=== PATIENT | male | born 1970 | race Hispanic/Latino ===

== ENCOUNTER 2017-12-29 19:40 | Emergency (ER) | payer OTHER ==
[2017-12-29 19:48] VITALS: TEMP 98.1; O2SAT 98
--- NOTE | 2017-12-29 22:00 | ED PDOC ---
HPI: Psych/Substance Abuse Time Seen by Provider: 12/29/17 20:25 Chief Complaint (Nursing): Chest Pain Chief Complaint (Provider): palpitations History Per: Patient History/Exam Limitations: no limitations Onset/Duration Of Symptoms: Hrs (x2) Current Symptoms Are (Timing): Gone Now Additional Complaint(s): 47 year old, [place] male with medical history of anxiety and depression, presents to the emergency department with a complaint of palpitations and lightheadedness while walking his dog 2 hours prior to arrival. Patient reported resolution of palpitations upon arrival but stated psychiatrist had doubled his doasge of Wellbutrin on 12/23/17. He also noted that he takes Adderall daily and currently tapering off of Lexapro. Denied any chest pain, nausea, vomiting or sweats. PMD: Drew Mccarthy MD Past Medical History Reviewed: Historical Data, Nursing Documentation, Vital Signs Vital Signs: Last Vital Signs Temp 98.1 F 12/29/17 19:45 Pulse 79 12/29/17 20:38 Resp 16 12/29/17 19:45 BP 146/93 H 12/29/17 20:38 Pulse Ox 98 12/29/17 19:45 - Medical History PMH: Anxiety, Depression - Surgical History Surgical History: No Surg Hx - Family History Family History: States: Unknown Family Hx - Social History Current smoker - smoking cessation education provided: No Alcohol: Social Drugs: Denies - Allergies Allergies/Adverse Reactions: Allergies Allergy/AdvReac Type Severity Reaction Status Date / Time No Known Allergies Allergy Verified 12/29/17 19:45 Review of Systems ROS Statement: Except As Marked, All Systems Reviewed And Found Negative Constitutional: Negative for: Sweats Cardiovascular: Positive for: Palpitations, Light Headedness. Negative for: Chest Pain Gastrointestinal: Negative for: Nausea, Vomiting Physical Exam - Reviewed Nursing Documentation Reviewed: Yes Vital Signs Reviewed: Yes - Physical Exam Appears: Positive for: Non-toxic, No Acute Distress Head Exam: Positive for: ATRAUMATIC, NORMAL INSPECTION, NORMOCEPHALIC Skin: Positive for: Normal Color Eye Exam: Positive for: Normal appearance ENT: Positive for: Normal ENT Inspection Neck: Positive for: Normal Cardiovascular/Chest: Positive for: Regular Rate, Rhythm, Chest Non Tender. Negative for: Murmur Respiratory: Positive for: Normal Breath Sounds. Negative for: Decreased Breath Sounds, Wheezing, Respiratory Distress Gastrointestinal/Abdominal: Positive for: Normal Exam, Soft. Negative for: Tenderness Extremity: Positive for: Normal ROM (upper/lower) Neurologic/Psych: Positive for: Alert, Oriented - Laboratory Results Result Diagrams: 12/29/17 22:50 12/29/17 22:50 - ECG O2 Sat by Pulse Oximetry: 98 (RA) Pulse Ox Interpretation: Normal Medical Decision Making Medical Decision Making: Initial Impression: Palpitation and lightheadedness in setting of psych med changes Initial Plan: * CMP * Drug screen, urine * TSH * Troponin I * CBC Labs revealed no significant clinical abnormalities. No arrhythmic activity was noted since arrival to ED. Patient reports feeling asymptomatic. Stable for discharge home. Diagnosis is palpitations. Patient is advised to follow up with psychiatrist since it may be related to increase in dosage of Wellbutrin. Return precautions were advised as well. Scribe Attestation: Documented by Anne-Marie Ocasio, acting as a scribe for Dimitri Singh MD. Provider Scribe Attestation: All medical record entries made by the Scribe were at my direction and personally dictated by me. I have reviewed the chart and agree that the record accurately reflects my personal performance of the history, physical exam, medical decision making, and the department course for this patient. I have also personally directed, reviewed, and agree with the discharge instructions and disposition. Disposition - Clinical Impression Clinical Impression: Palpitations - Patient ED Disposition Is Patient to be Admitted: No - Disposition Disposition: Routine/Home Disposition Time: 23:15 Condition: STABLE Instructions: Palpitations Forms: [employer] (Estonian)
[2017-12-29 22:56] LABS: BASO % 0.7 % (0.0-2.0); EOS # 0.1 K/uL (0.0-0.7); EOS % 1.9 % (0.0-4.0); HEMOGLOBIN 15.2 g/dL (12.0-18.0); LYMPH # 2.2 K/uL (1.0-4.3); LYMPH % 32.9 % (20.0-40.0); MEAN CELL VOLUME 92.2 fl (80.0-94.0); MEAN CORPUSCULAR HEMOGLOBIN 31.1 pg (27.0-31.0); MEAN CORPUSCULAR HGB CONC 33.7 g/dL (33.0-37.0); MEAN PLATELET VOLUME 8.2 fl (7.2-11.7); MONO # 0.4 K/uL (0.0-0.8); MONO % 6.7 % (0.0-10.0); NEUT # 3.9 K/uL (1.8-7.0); NEUT % 57.8 % (50.0-75.0); NRBC % 0.1 % (0.0-0.0); RBC 4.88 Mil/uL (4.40-5.90); RED CELL DISTRIBUTION WIDTH 13.2 % (11.5-14.5); WHITE BLOOD COUNT 6.7 K/uL (4.8-10.8)
[2017-12-29 23:03] LABS: CALCIUM 9.6 mg/dL (8.4-10.2); GFR AFRICAN-AMERICAN > 60; GFR NON-AFRICAN AMERICAN > 60
[2017-12-29 23:12] LABS: ALB/GLOB RATIO 1.4 (1.0-2.1); ALBUMIN 4.8 g/dL (3.5-5.0); ALT/SGPT 34 U/L (21-72); AST/SGOT 58 U/L (17-59); BLOOD UREA NITROGEN 10 mg/dl (9-20)
[2017-12-30 00:05] LABS: BARBITURATES, UR NEGATIVE (NEGATIVE); BENZODIAZEPINES, UR NEGATIVE (NEGATIVE); OPIATES, UR NEGATIVE (NEGATIVE); PHENCYCLIDINE, UR NEGATIVE (NEGATIVE)
[2017-12-30 00:21] VITALS: BP 129/90; PULSE 61; RESP 14
== END 2017-12-30 00:23 | disposition home or self-care (01) ==
LOC: H.ER 19:40
DX: R00.2 Palpitations (principal); Z86.59 Personal history of other mental and behavioral disorders